=== PATIENT | male | born 1980 | race Hispanic/Latino ===

== ENCOUNTER 2018-05-31 21:43 | Emergency (ER) | payer OTHER ==
[2018-05-31 22:17] VITALS: RESP 18
--- NOTE | 2018-05-31 22:25 | ED PDOC ---
Arrival/HPI - General Chief Complaint: Medical Clearance Time Seen by Provider: 05/31/18 21:46 Historian: Patient - History of Present Illness Narrative History of Present Illness (Text): 05/31/18 22:42 38-year-old male presents today for meningitis prophylaxis. Patient states he received a phone call that he was possibly exposed to meningitis today and that he needed to come into the emergency room and get Cipro. Patient denies any complaints at present time. Past Medical History - Provider Review Nursing Documentation Reviewed: Yes - Travel History Have you recently traveled outside [place] w/in the past 3 mons?: No - Infectious Disease Hx of Infectious Diseases: None - Cardiac Hx Cardiac Disorders: No - Psychiatric Hx Substance Use: No Family/Social History - Physician Review Nursing Documentation Reviewed: Yes Family/Social History: Unknown Family HX Smoking Status: Never Smoked Hx Alcohol Use: No Hx Substance Use: No Allergies/Home Meds Allergies/Adverse Reactions: Allergies shellfish derived Allergy (Verified 05/31/18 21:49) ANAPHYLAXIS Home Medications: Home Meds Medication Instructions Recorded Confirmed No Known Home Med 05/31/18 05/31/18 Review of Systems - Review of Systems Constitutional: absent: Fatigue, Fevers Respiratory: absent: SOB, Cough Cardiovascular: absent: Chest Pain, Palpitations Gastrointestinal: absent: Abdominal Pain, Nausea, Vomiting Musculoskeletal: absent: Arthralgias Neurological: absent: Headache, Dizziness Physical Exam Vital Signs Reviewed: Yes Vital Signs Temp Pulse Resp BP Pulse Ox 05/31/18 22:16 97.3 F L 79 18 130/84 98 Temperature: Afebrile Blood Pressure: Normal Pulse: Regular Respiratory Rate: Normal Appearance: Positive for: Well-Appearing, Non-Toxic, Comfortable Pain Distress: None Mental Status: Positive for: Alert and Oriented X 3 - Systems Exam Head: Present: Atraumatic Respiratory/Chest: Present: Clear to Auscultation Cardiovascular: Present: Regular Rate and Rhythm Neurological: Present: GCS=15 Skin: Present: Warm, Dry, Normal Color. No: Rashes Psychiatric: Present: Alert, Oriented x 3 Medical Decision Making ED Course and Treatment: 05/31/18 22:43 38-year-old male presenting for meningitis prophylaxis. Patient denies any complaints. 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 Cipro 500 mg p.o. given Patient was advised follow-up with primary care physician and return if any concerning symptoms develop Patient verbalizes understanding of discharge instructions and need for immediate followup. All aspects of this case were discussed the attending of record. Impression: Meningitis exposure Return if any concerning symptoms develop Follow with the primary care physician within the next 2 days - Medication Orders Current Medication Orders: Discontinued Medications Ciprofloxacin (Cipro) 500 mg PO ONCE STA; Protocol Stop: 05/31/18 22:00 Last Admin: 05/31/18 22:19 Dose: 500 mg Disposition/Present on Arrival - Present on Arrival Any Indicators Present on Arrival: No History of DVT/PE: No History of Uncontrolled Diabetes: No Urinary Catheter: No History of Decub. Ulcer: No History Surgical Site Infection Following: None - Disposition Have Diagnosis and Disposition been Completed?: Yes Diagnosis: Meningitis exposure Disposition: HOME/ ROUTINE Disposition Time: 22:22 Patient Plan: Discharge Condition: GOOD Additional Instructions: Follow up with the primary care physician return immediately if any concerning symptoms develop. Referrals: Mindy Ritchie MD [Medical Doctor] - Follow up with primary [facility] [Outside] - Follow up with primary
[2018-05-31 22:49] VITALS: BP 128/71; PULSE 82; TEMP 97.8; O2SAT 99
== END 2018-05-31 22:49 | disposition home or self-care (01) ==
LOC: ED 21:43
DX: Z20.811 Contact with and (suspected) exposure to meningococcus (principal)